=== PATIENT | male | born 1940 | race Caucasian/White ===

== ENCOUNTER 2017-10-30 16:59 | Emergency (ER) | payer MEDICARE, BC ==
--- NOTE | 2017-10-30 20:32 | RAD ---
RIGHT HAND THREE VIEWS: 10/30/2017 FINDINGS: There is a very large amount of air in the soft tissues of the hand, predominantly in the thenar side of the hand, with particular extension into the bases of the first, second, and third digits. Some air dissects proximally into the radial side of the wrist. I do not see any opaque foreign bodies or gross fractures. Mild degenerative changes are seen in some of the IP joints. There is a flexion d eformity of the fifth digit, which is probably longstanding, but I cannot accurately assess this area around the PIP joint in that finger for any acute injury. IMPRESSION: Marked soft tissue air as noted. No acute bony findings. POS: HOME
== END 2017-10-30 18:28 | disposition home or self-care (01) ==
LOC: BURERS 16:59
DX: S61.411A Laceration without foreign body of right hand, initial encounter (principal); E78.5 Hyperlipidemia, unspecified; I10 Essential (primary) hypertension; K21.9 Gastro-esophageal reflux disease without esophagitis; F17.210 Nicotine dependence, cigarettes, uncomplicated; Z79.899 Other long term (current) drug therapy; Z79.82 Long term (current) use of aspirin; W45.8XXA Other foreign body or object entering through skin, initial encounter
CPT/HCPCS: 12002; 90471

== ENCOUNTER 2018-10-19 18:42 | Emergency (ER) | payer MEDICARE, BC | END 2018-10-19 19:22 | disposition home or self-care (01) | LOC: BURERS 18:42 | DX: S61.012A Laceration without foreign body of left thumb without damage to nail, initial encounter (principal); K21.9 Gastro-esophageal reflux disease without esophagitis; E78.00 Pure hypercholesterolemia, unspecified; I10 Essential (primary) hypertension; F17.210 Nicotine dependence, cigarettes, uncomplicated; Z79.82 Long term (current) use of aspirin; Z79.899 Other long term (current) drug therapy; W26.0XXA Contact with knife, initial encounter | CPT/HCPCS: 12001 ==

== ENCOUNTER 2020-02-28 16:18 | Inpatient (IN) | payer MEDICARE, BC ==
[~2020-02-28 16:18] MED LIST: Iopamidol 370 76% 100 ML VIAL ONE
[2020-02-28 17:18] LABS: #Basophils 0.1 thou/uL (0.0-0.2); #Eosinphils 0.1 thou/uL (0.0-0.7); #Lymphocytes 0.9 thou/uL (1.20-3.40); #Monocytes 1.4 thou/uL (0.11-0.59); #Neutrophils 13.6 thou/uL (1.40-6.50); %Basophils 0.5 % (0.0-1.0); %Eosinophils 0.4 % (0.0-10.0); %Lymphocytes 5.3 % (21.0-51.0); %Monocytes 8.6 % (0.0-10.0); %Neutrophils 85.2 % (42.0-75.0); Hemoglobin 13.7 g/dL (14.0-18.0); Mean Corpuscular HGB CONC 32.3 g/dL (32.0-36.0); Mean Corpuscular Hemoglobin 32.4 pg (27.0-31.0); Mean Platelet Volume 5.9 fL (7.4-10.4); Platelet Count 267 thou/uL (130-400); RBC Distribution Width 12.1 % (11.5-14.5); Red Blood Cell (RBC) Count 4.22 mill/uL (4.70-6.10); White Blood Cell (WBC) Count 15.9 thou/uL (4.8-10.8)
[2020-02-28 17:23] LABS: ALT (SGPT) 20 U/L (8-55); AST (SGOT) 12 U/L (5-34); Albumin 3.4 g/dL (3.4-4.8); Alkaline Phosphatase 69 U/L (40-110); Anion Gap 14 mmol/L (10-20); BUN (Urea Nitrogen) 23 mg/dL (8.4-25.7); Bilirubin, Total 0.3 mg/dL (0.2-1.2); Calc. Creatinine Clearance 0 mL/min (70-130); Calcium 8.8 mg/dL (7.8-10.44); Carbon Dioxide 27 mmol/L (23-31); Chloride 99 mmol/L (98-107); Globulin 2.8 g/dL (2.4-3.5); Glucose 94 mg/dL (83-110); Potassium 4.4 mmol/L (3.5-5.1); Protein, Total 6.2 g/dL (5.8-8.1); Sodium 136 mmol/L (136-145)
[2020-02-28] MEDS ORDERED: cefTRIAXone\\ROCEPHIN 2 GM VIAL ONE (17:38)
[2020-02-28] MEDS ORDERED: Sodium Chloride 0.9% 100 ML ONE (17:39)
[2020-02-28 18:44] LABS: Bilirubin Negative (Negative); Blood, Urine Trace (Negative); Clarity Clear (Clear); Glucose, Urine (Dipstick) Negative (Negative); Ketone, Urine Negative (Negative); Leukocyte Negative (Negative); Nitrite Negative (Negative); Protein, Urine (Dipstick) Negative (Neg-Trace); Urobilinogen 0.2 mg/dL (Less than 2)
[2020-02-28 19:02] LABS: RBC/HPF 0-3 HPF (0-3); Squamous Epithelial 0-3 HPF (0-3); WBC/HPF None Seen HPF (0-3)
[2020-02-28 19:03] LABS: Bacteria/HPF 1+ HPF (None Seen)
[2020-02-28] MEDS ORDERED: Levofloxacin 500 mg/D5W 100 ml Premix Bag ONE (19:23)
[2020-02-28] MEDS ORDERED: Aspirin Chewable 81 MG TAB ONE (19:23)
[2020-02-28] MEDS ORDERED: Ondansetron PF 4 MG/2 ML Vial IVP PRN (20:04)
[2020-02-28] MEDS ORDERED: Ondansetron ODT 4 MG TAB PO PRN (20:04)
[2020-02-28] MEDS ORDERED: Acetaminophen 325 MG TAB PO PRN (20:05)
[2020-02-28] MEDS ORDERED: HYDROcodone/Acetaminophen 5/325 mg Tablet PO PRN ×2 (20:05→20:06)
--- NOTE | 2020-02-28 20:46 | RAD ---
PORTABLE CHEST 02/28/20 Comparison is made with a 12/31/19 study. There is interval appearance of an infiltrate in the right lower lobe medially. Emphysematous changes are present throughout the lungs. There are no large effusions, but there might be a little blunting of the right costophrenic angle. The heart is normal in size. There are no congestive changes. IMPRESSION: Interval appearance of a right lower lobe infiltrate. Pneumonia is presumed. POS: HOME
--- NOTE | 2020-02-28 21:01 | CT ---
CT ANGIO OF THE CHEST: 02/28/[address] of the chest was done for evaluation of this patient with an abnormal chest x-ray, dyspnea, and an elevated D-dimer. There is very good opacification of the pulmonary arteries. The pulmonary arteries are quite large jasso ggestive of pulmonary arterial hypertension. For example, the right pulmonary artery is about 3.7 cm in width. No filling defects were seen in either artery to suggest emboli. Arteriosclerotic change is present in the aorta but there was no sign of aneurysm or dissection. Coronary artery calcifications are seen, particularly in the left coronary circulation. The heart is mildly prominent in size but t here is no pericardial effusion. The major finding on the exam is an infiltrate in the right lower lobe medially. It is worst and dens est centrally, though there is some peripheral infiltrate. On some of the slices, for example, slice 103 of the axial images or slice 38 of one of the oblique images, there is a more solid area in the m edial most portion of the right lower lobe adjacent to this infiltrate. I was concerned about the pos sibility of a mass here, however, comparing back with a CT of the abdomen of 12/31/19, this area was p art of that scan and there was no evidence of mass at that time. Thus, this may just be consolidated lung. See comments below. Aside from the pneumonia, there is a small right pleural effusion which is a new finding. Apical blebs and scarring are evident, particularly in the right lung apex. There is no sign of mediastinal mass or significant adenopathy. Scans into the upper part of the abdo men showed no acute changes in the areas scanned. IMPRESSION: 1. No evidence of pulmonary embolism. 2. Right lower lobe pneumonia medially along with a small right pleural effusion, new findings s ann mariedecember. 3. Somewhat more solid appearing area in the medial right lower lobe. Although it looks rather m ass-like on today's scan, given no pathology at all here on a 12/31/19 CT of the abdomen, this is prob ably just consolidated lung. It would still be best to treat the patient completely for this current infection and then consider coming back a few weeks or month after treatment and doing another chest CT for a second look. 4. COPD. 5. Arteriosclerosis, including coronary artery calcification. 6. Evidence of pulmonary arterial hypertension. Preliminary findings discussed with Dr. Villalta at 1820 on 02/28/20. Code CR POS: HOME
[2020-02-28] MEDS ORDERED: Bisacodyl 5 MG TAB PO PRN (22:03)
[2020-02-28] MEDS ORDERED: Bisacodyl 10 MG SUPP PR PRN (22:03)
[2020-02-28] MEDS ORDERED: Guaifenesin DM 100-10/5 ML UDCUP PO PRN (22:03)
[2020-02-28] MEDS ORDERED: Nitroglycerin 0.4 MG TAB (25 Tab Bottle) SL PRN (22:06)
[2020-02-28] MEDS ORDERED: Fluticasone Propionate Nasal Spray 16 gm Bottle NASAL PRN (22:06)
[2020-02-28] MEDS: Dextrose 5 %-0.45 % NaCl 1,000 ML IV SCH (22:24)
[2020-02-28 22:53] VITALS: BMI 23.1
[2020-02-29] MEDS: Dextrose 5 %-0.45 % NaCl 1,000 ML IV SCH ×5 (05:20→23:37)
[2020-02-29 05:25] LABS: #Basophils 0.1 thou/uL (0.0-0.2); #Eosinphils 0.1 thou/uL (0.0-0.7); #Lymphocytes 0.8 thou/uL (1.20-3.40); #Monocytes 1.1 thou/uL (0.11-0.59); #Neutrophils 12.9 thou/uL (1.40-6.50); %Basophils 0.5 % (0.0-1.0); %Eosinophils 0.5 % (0.0-10.0); %Lymphocytes 5.5 % (21.0-51.0); %Monocytes 7.2 % (0.0-10.0); %Neutrophils 86.4 % (42.0-75.0); Hemoglobin 12.2 g/dL (14.0-18.0); Mean Corpuscular HGB CONC 32.7 g/dL (32.0-36.0); Mean Corpuscular Hemoglobin 32.6 pg (27.0-31.0); Mean Corpuscular Volume 99.9 fL (78.0-98.0); Mean Platelet Volume 5.4 fL (7.4-10.4); Platelet Count 233 thou/uL (130-400); RBC Distribution Width 12.1 % (11.5-14.5); Red Blood Cell (RBC) Count 3.75 mill/uL (4.70-6.10)
[2020-02-29 05:38] LABS: ALT (SGPT) 19 U/L (8-55); AST (SGOT) 13 U/L (5-34); Alkaline Phosphatase 61 U/L (40-110); Anion Gap 12 mmol/L (10-20); BUN (Urea Nitrogen) 19 mg/dL (8.4-25.7); Bilirubin, Total 0.3 mg/dL (0.2-1.2); Calc. Creatinine Clearance 66 mL/min (70-130); Calcium 8.2 mg/dL (7.8-10.44); Carbon Dioxide 26 mmol/L (23-31); Chloride 101 mmol/L (98-107); Globulin 2.8 g/dL (2.4-3.5); Glucose 118 mg/dL (83-110); Potassium 4.3 mmol/L (3.5-5.1); Protein, Total 5.8 g/dL (5.8-8.1); Sodium 135 mmol/L (136-145)
[2020-02-29] MEDS ORDERED: Albuterol 200 PUFF (6.7GM INHALER) INH PRN (08:26)
[2020-02-29] MEDS: cefTRIAXone\\ROCEPHIN 1 GM in Sodium Chloride 0.9% 100 ML IVPB SCH ×2 (08:33→21:39)
[2020-02-29] MEDS: Polyethylene Glycol 3350 17 GM Packet PO SCH (08:34)
[2020-02-29] MEDS: Aspirin 325 mg Enteric Coated Tablet PO SCH (08:34)
[2020-02-29] MEDS: Multivitamin W/ Minerals 1 TAB PO SCH (08:35)
[2020-02-29] MEDS: Clopidogrel Bisulfate 75 MG TAB PO SCH (08:35)
[2020-02-29] MEDS: Atorvastatin Calcium 10 MG TAB PO SCH (08:36)
[2020-02-29] MEDS: Cholecalciferol 1,000 UNITS (25 MCG) TAB PO SCH (08:37)
[2020-02-29] MEDS: Niacin 500 MG TAB PO SCH (08:38)
[2020-02-29] MEDS ORDERED: FLU VACC QS2020-21(65YR UP)/PF 240 MCG/0.7 ML SYRINGE IM ONE (09:00)
[2020-02-29] MEDS: Gabapentin 300 MG CAP PO SCH ×2 (09:33→20:09)
[2020-02-29] MEDS ORDERED: cefTRIAXone\\ROCEPHIN 1 GM in Sodium Chloride 0.9% 100 ML IVPB SCH (18:00)
[2020-02-29 18:01] LABS: SARS-CoV-2 MS2 Positive; SARS-CoV-2 N Gene Negative; SARS-CoV-2 S Gene Negative; SARS-CoV-2 by NAA Not Detected (NotDetected); SARS-CoV-2 orf1ab Negative
--- NOTE | 2020-02-29 19:06 | HP ---
CHIEF COMPLAINT: Fatigue and shortness of breath. HISTORY OF PRESENT ILLNESS: The patient is an extremely pleasant 79-year-old white male with a history of COPD and history of long-term smoking use, who was being treated on outpatient basis for suspected bronchitis/COPD exacerbation. He was given Zithromax x2 as well as oral steroids and continued to do poorly and presented to the doctor's office on the day of admission, found to be hypotensive with a systolic blood pressure in the 70s and sent to the emergency room. In the emergency room, the patient was given IV fluids. The hypotension improved. He was slightly hypoxic requiring oxygen to keep the saturations above 90%. He underwent a CTA due to the elevated D-dimer. CTA was negative for pulmonary embolism, but did show right lower lobe pneumonia with some consolidation suspicious for possible mass versus infectious process. Due to new onset pneumonia, failed outpatient treatment, the patient was admitted to the hospital for inpatient care. PAST MEDICAL HISTORY: Significant for; 1. COPD. 2. Gastroesophageal reflux disease. 3. History of iron deficiency anemia. 4. History of hyperlipidemia. 5. History of hypertension. 6. History of osteoarthritis. 7. History of chronic back pain. 8. History of abdominal aortic aneurysm. PAST SURGICAL HISTORY: Includes tonsillectomy. MEDICATIONS: The patient currently takes; 1. Toprol 25 mg b.i.d. 2. Omeprazole 40 mg daily. 3. Niaspan 500 mg three tablets daily. 4. Gabapentin 300 mg b.i.d. 5. Lisinopril 20 mg daily. 6. Plavix 75 mg daily. 7. Aspirin 81 mg daily. 8. Flonase nasal spray one spray each nostril daily. 9. Nitroglycerin tablets p.r.n. angina. ALLERGIES: NO KNOWN DRUG ALLERGIES. SOCIAL HISTORY: The patient is a long-term chronic smoker more than one pack a day for greater than 30 years. Rare social drinker. No other social drug use. The patient is independent in all activities of daily living. He has had some weight loss over the last year. REVIEW OF SYSTEMS: The patient has had increased cough productive of yellow to green sputum. He has had increased malaise with decreased appetite as in HPI. No nausea nor vomiting. No diarrhea. The patient denies any chest pain other than in HPI. He has had some low-grade fevers with his malaise reported. The patient denies any dysuria, hematuria, or change in urinary frequency. No diarrhea nor recent constipation. No significant recent weight loss or weight gain other than gradual weight loss over the last year. The patient denies any rashes. No recent history of depression and denies visual changes. PHYSICAL EXAMINATION: VITAL SIGNS: Blood pressure was initially 70 systolic, improved to 123/86 with 1 L IV fluids. Pulse was in the 80s, respiratory rate was 21, temperature 98.6, and O2 saturation was 92% on 2 L and 88% on room air. LABORATORY DATA: EKG showed complete right bundle block with some slight abnormal T-wave nonspecific. Chest x-ray showed right middle lobe pneumonia confirmed. A CT scan of the chest showing a pleural effusion on the right side with right lower lobe pneumonia and/or possible mass. Labs on admission, laboratory results were significant for CBC with a white count 15,900 with an H and H of 13.7 and 42.2. Chemistries showed a creatinine of slightly elevated at 1.31, BUN of 23, and lactic acid was 0.9. BNP was 105.9. ASSESSMENT AND PLAN: 1. Right lower lobe pneumonia. Failed outpatient treatment. The patient will be admitted to the floor, given oxygen per nasal cannula. He will be started on albuterol and Atrovent breathing treatments. The patient underwent a COVID test, results of which are pending. He will be on isolation until results are back. If negative, can be removed from isolation. The patient was started empirically on IV Levaquin and IV Rocephin. He will be given IV fluids to continue to help monitor his blood pressure. He does not appear overly acutely septic, but definitely has pneumonia with failed outpatient treatment. 2. Chronic obstructive pulmonary disease. We will continue the patient on neb treatments and oxygen as above. 3. Hypotension, likely secondary to patient's recent decreased oral intake with mild dehydration on top of his infection. We will continue IV fluids and monitor the patient's blood pressure. 4. Disposition. The patient should be improved to the point, where he will be discharged to home. He will get an outpatient followup CT scan to ensure that the right lower lobe was only an infectious process since he is high risk for an oncological process as well. The patient is a full code. Job ID: [id number]
[2020-02-29] MEDS: Rosuvastatin 10 MG TAB PO SCH (20:09)
[2020-02-29] MEDS ORDERED: Lisinopril 5 MG TAB PO SCH (21:00)
[2020-03-01] MEDS: Polyethylene Glycol 3350 17 GM Packet PO SCH ×2 (08:02→08:13)
[2020-03-01] MEDS: cefTRIAXone\\ROCEPHIN 1 GM in Sodium Chloride 0.9% 100 ML IVPB SCH ×2 (08:06→20:42)
[2020-03-01] MEDS: Cholecalciferol 1,000 UNITS (25 MCG) TAB PO SCH (08:13)
[2020-03-01] MEDS: Clopidogrel Bisulfate 75 MG TAB PO SCH (08:13)
[2020-03-01] MEDS: Atorvastatin Calcium 10 MG TAB PO SCH (08:14)
[2020-03-01] MEDS: Aspirin 325 mg Enteric Coated Tablet PO SCH (08:14)
[2020-03-01] MEDS: Gabapentin 300 MG CAP PO SCH ×2 (08:16→20:40)
[2020-03-01] MEDS: Multivitamin W/ Minerals 1 TAB PO SCH (08:18)
[2020-03-01] MEDS: Niacin 500 MG TAB PO SCH (08:19)
[2020-03-01] MEDS ORDERED: Mag-Al Plus 1200 MG/1200 MG/120 MG/30 ML UDCUP PO PRN (19:57)
[2020-03-01] MEDS ORDERED: Melatonin 3 MG TAB PO PRN (19:58)
[2020-03-01] MEDS: Rosuvastatin 10 MG TAB PO SCH (20:40)
[2020-03-02 05:18] LABS: #Basophils 0.1 thou/uL (0.0-0.2); #Eosinphils 0.1 thou/uL (0.0-0.7); #Monocytes 0.9 thou/uL (0.11-0.59); #Neutrophils 6.9 thou/uL (1.40-6.50); %Basophils 0.9 % (0.0-1.0); %Eosinophils 1.5 % (0.0-10.0); %Monocytes 9.9 % (0.0-10.0); %Neutrophils 76.7 % (42.0-75.0); Hemoglobin 12.1 g/dL (14.0-18.0); Mean Corpuscular HGB CONC 32.5 g/dL (32.0-36.0); Mean Corpuscular Hemoglobin 32.3 pg (27.0-31.0); Mean Corpuscular Volume 99.4 fL (78.0-98.0); Mean Platelet Volume 5.4 fL (7.4-10.4); Platelet Count 235 thou/uL (130-400); RBC Distribution Width 12.2 % (11.5-14.5); Red Blood Cell (RBC) Count 3.75 mill/uL (4.70-6.10)
[2020-03-02 05:22] VITALS: BP 117/57; TEMP 96.1
[2020-03-02 05:24] LABS: ALT (SGPT) 63 U/L (8-55); AST (SGOT) 42 U/L (5-34); Albumin 3.1 g/dL (3.4-4.8); Alkaline Phosphatase 59 U/L (40-110); Anion Gap 14 mmol/L (10-20); BUN (Urea Nitrogen) 19 mg/dL (8.4-25.7); Bilirubin, Total 0.3 mg/dL (0.2-1.2); Calc. Creatinine Clearance 62 mL/min (70-130); Calcium 8.7 mg/dL (7.8-10.44); Carbon Dioxide 28 mmol/L (23-31); Chloride 99 mmol/L (98-107); Glucose 110 mg/dL (83-110); Potassium 4.3 mmol/L (3.5-5.1); Protein, Total 6.1 g/dL (5.8-8.1); Sodium 137 mmol/L (136-145)
--- NOTE | 2020-03-02 07:19 | RAD ---
CHEST 2 VIEWS: Date: 03/02/2020 Comparison made with the 02/28/2020 study. The right lower lobe infiltrate medially has definitely improved in the interval. No new infiltrates are seen elsewhere. COPD is present as usual. The heart remains normal in size and there is no vascul ar congestion or large pleural effusion. IMPRESSION: Right basilar pneumonia improving. POS: HOME
[2020-03-02] MEDS: Gabapentin 300 MG CAP PO SCH (08:58)
[2020-03-02] MEDS: Atorvastatin Calcium 10 MG TAB PO SCH (08:58)
[2020-03-02] MEDS: Cholecalciferol 1,000 UNITS (25 MCG) TAB PO SCH (08:58)
[2020-03-02] MEDS: Multivitamin W/ Minerals 1 TAB PO SCH (08:59)
[2020-03-02] MEDS: Clopidogrel Bisulfate 75 MG TAB PO SCH (08:59)
[2020-03-02] MEDS: cefTRIAXone\\ROCEPHIN 1 GM in Sodium Chloride 0.9% 100 ML IVPB SCH (09:02)
[2020-03-02] MEDS: Aspirin 325 mg Enteric Coated Tablet PO SCH (09:52)
[2020-03-02] MEDS: Niacin 500 MG TAB PO SCH (09:53)
--- NOTE | 2020-03-03 04:28 | DIS ---
DATE OF ADMISSION: 02/28/2020 DATE OF DISCHARGE: 03/02/2020 ADMISSION DIAGNOSES: 1. Right lower lobe pneumonia. 2. Dehydration. 3. Chronic obstructive pulmonary disease. 4. Right medial lower lobe consolidation. 5. Hypertension. 6. Dyslipidemia. 7. Arterial sclerosis including coronary artery calcification. 8. Evidence of pulmonary arterial hypertension. 9. 03/02/2020, chest x-ray is pending radiological read. PROCEDURES: 02/28/2020, chest x-ray shows interval appearance of a right lower lobe infiltrate. Pneumonia is presumed. 02/28/2020, CTA of chest shows no evidence of pulmonary embolism. Right lower lobe pneumonia medially along with a small right pleural effusion. New findings since December, somewhat more solid appearing area in the medial right lower lobe, although it looks rather masslike on today's scan given no pathology at all here. On 12/31/2019, CT of the abdomen, this is probably just consolidated lung. It would still be best to treat the patient completely for this current infection and then consider coming back a few weeks or months after treatment and doing another chest CT for a second-look. HOSPITAL COURSE: An 79-year-old male with chronic smoking history and COPD, was sent from the clinical setting to the [facility] Emergency Department secondary to hypotension with systolic blood pressure in the 70s. Prior to this, he had been treated for ongoing cough with a course of azithromycin and prednisone taper. He was provided IV fluids in the emergency department. Initial lab work showed leukocytosis with left shift and elevated D-dimer, which prompted a CTA of the chest; this did rule out pulmonary embolism, but did show right lower lobe pneumonia and consolidation suspicious for possible mass versus infectious process. The patient was started empirically on IV Rocephin and IV Levaquin and admitted to the floor. The patient was initially provided oxygen as he was borderline hypoxic. The patient's labs were trended and his leukocytosis resolved. COVID testing was negative. Blood and urine cultures have come back negative beyond 48 hours. He was successfully weaned off supplemental oxygen and this morning appears much improved. He is amenable to discharge back to his home setting with plans to complete an oral antibiotic course along with repeat imaging as advised in the next few weeks. DISPOSITION: The patient will discharge home and may follow up with myself in the clinic next week or in 1 week. DISCHARGE MEDICATIONS: New medications will be cefdinir 300 mg p.o. b.i.d. x5 days and Levaquin 500 mg daily x5 days. He is to begin Trelegy one inhalation daily, which was sent from the clinic last Monday. He is to otherwise continue his usual home medications which include Toprol 25 mg b.i.d., omeprazole 40 mg daily, Niaspan 500 mg three tablets daily, gabapentin 300 mg b.i.d., lisinopril 20 mg daily, Plavix 75 mg daily, aspirin 81 mg daily, Flonase 1 spray to each nostril daily. Nitroglycerin tablets p.r.n. chest pain. Total time spent in discharge of this patient greater than 30 minutes. Job ID: [id number] [facility]
[2020-03-03] MEDS ORDERED: Aspirin 81 mg Enteric Coated Tablet PO SCH (09:00)
== END 2020-03-02 11:30 | disposition home or self-care (01) | DRG 194 ==
LOC: BURERS 16:18 → BURMED 19:44
PROVIDERS: ADMIT Family Medicine; ATTEND Family Medicine
DX: J18.9 Pneumonia, unspecified organism (principal); J44.0 Chronic obstructive pulmonary disease with (acute) lower respiratory infection; E86.0 Dehydration; Z20.828 Contact with and (suspected) exposure to other viral communicable diseases; I95.89 Other hypotension; K21.9 Gastro-esophageal reflux disease without esophagitis; E78.5 Hyperlipidemia, unspecified; F17.210 Nicotine dependence, cigarettes, uncomplicated; I25.10 Atherosclerotic heart disease of native coronary artery without angina pectoris; I27.21 Secondary pulmonary arterial hypertension; I10 Essential (primary) hypertension; G89.29 Other chronic pain; M19.90 Unspecified osteoarthritis, unspecified site; Z90.89 Acquired absence of other organs; Z79.82 Long term (current) use of aspirin; Z79.02 Long term (current) use of antithrombotics/antiplatelets
CPT/HCPCS: 36415; 71045; 71046; 71275; 80053; 81003; 81015; 83605; 83880; 84484; 85025; 85379; 87040; 87070; 87086; 87205; 87635; 93005; 94760; 96365; J0696; J1956; J3490; Q9967; U0003

== ENCOUNTER 2020-04-27 08:35 | Outpatient (CLI) | payer MEDICARE, BC ==
[2020-04-27] MEDS ORDERED: Iopamidol 370 76% 100 ML VIAL ONE (12:40)
== END 2020-04-27 08:36 | disposition home or self-care (01) ==
LOC: BURCT 08:35
PROVIDERS: ATTEND Family Medicine
DX: Z01.818 Encounter for other preprocedural examination (principal); R91.8 Other nonspecific abnormal finding of lung field
CPT/HCPCS: 36415; 71260; 82565; Q9967

== ENCOUNTER 2020-08-19 09:45 | Outpatient (CLI) | payer MEDICARE, BC ==
[2020-08-19] MEDS ORDERED: Iopamidol 370 76% 100 ML VIAL ONE (12:09)
== END 2020-08-19 09:46 | disposition home or self-care (01) ==
LOC: BURCT 09:45
PROVIDERS: ATTEND Internal Medicine Pulmonary Disease
DX: Z01.812 Encounter for preprocedural laboratory examination (principal); R91.8 Other nonspecific abnormal finding of lung field; J44.9 Chronic obstructive pulmonary disease, unspecified; J98.4 Other disorders of lung
CPT/HCPCS: 36415; 71260; 82565; Q9967